=== PATIENT | male | born 2005 | race Caucasian/White ===

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

== ENCOUNTER 2023-12-24 16:31 | Observation (INO) | payer OTHER ==
[~2023-12-24] VITALS: Ht 188 cm; Wt 86.2 kg
[~2023-12-24 16:31] MED LIST changes: +Inderal40 MG PO
[2023-12-24 17:57] LABS: BASOPHILS ABSOLUTE AUTO 0.04 K/mm3 (0.00-0.23); BASOPHILS PERCENT AUTO 1 % (0-2); EOSINOPHILS ABSOLUTE AUTO 0.18 K/mm3 (0.00-0.68); EOSINOPHILS PERCENT AUTO 2 % (0-6); Hematocrit 38.2 % (37.0-53.0); IMMATURE GRAN ABSOLUTE AUTO 0.02 K/mm3 (0.00-0.10); IMMATURE GRAN PERCENT AUTO 0 % (0-1); LYMPHOCYTES ABSOLUTE AUTO 1.74 K/mm3 (0.84-5.20); LYMPHOCYTES PERCENT AUTO 20 % (21-46); MONOCYTES ABSOLUTE AUTO 0.66 K/mm3 (0.16-1.47); MONOCYTES PERCENT AUTO 8 % (4-13); Mean Corpuscular Volume 88 fL (80-100); Mean Platelet Volume 9.6 fL (9.1-12.4); NEUTROPHILS PERCENT AUTO 70 % (41-73); Platelet Count 271 K/mm3 (150-400); RDW Coefficient Variation 13.7 % (11.7-14.2); RDW Standard Deviation 44.3 fL (35.1-46.3); Red Blood Cell Count 4.34 M/mm3 (4.30-5.90); White Blood Cell Count 8.74 K/mm3 (4.00-11.30)
[2023-12-24 18:10] LABS: Ethanol (Alcohol), Blood, Med <3 mg/dL
[2023-12-24 18:11] LABS: Acetaminophen, Random <2.0 ug/mL (10.0-30.0); Alanine Aminotransfer (ALT/SGP 28 U/L (12-78); Albumin, Blood 4.2 g/dL (3.4-5.0); Albumin/Globulin Ratio 1.2 (0.8-1.8); Alk Phos 97 U/L (50-136); Anion Gap 11 mmol/L (3-11); Aspartate Aminotrans (AST/SGOT 38 U/L (12-37); Bilirubin, Total 0.7 mg/dL (0.1-1.0); Blood Urea Nitrogen 20 mg/dL (8-24); Bun/Creatinine Ratio 18.5 (12.0-20.0); CO2, Blood 21 mmol/L (21-32); Calcium, Blood 9.5 mg/dL (8.5-10.1); Chloride, Blood 110 mmol/L (98-108); Creatinine, Blood 1.08 mg/dL (0.60-1.20); Globulin, Blood 3.4 g/dL (2.2-4.0); Glomerular Filtration Rate 101 (60-); Glucose, Blood 106 mg/dL (70-99); Potassium, Blood 4.4 mmol/L (3.5-5.5); Sodium, Blood 138 mmol/L (136-145); Total Protein, Blood 7.6 g/dL (6.4-8.2)
[2023-12-24] MEDS ORDERED: OLANZapine 10 MG Tab PO ONE ×2 (18:20→20:45)
[2023-12-24 19:46] LABS: Source, Urine Clean Catch
[2023-12-24 20:00] LABS: Appearance, Urine Clear (Clear); Bilirubin, Urine Neg (Neg); Blood, Urine Neg (Neg); Color, Urine Yellow (P-Yellow); Glucose Qualitative, Urine Neg (Neg); Ketones, Urine 2+ (Neg); Leukocyte Esterase, Urine 1+ (Neg); Nitrite, Urine Neg (Neg); Protein, Urine 3+ (Neg); Specific Gravity, Urine 1.025 (1.003-1.022); Urobilinogen, Urine 1+ (Normal)
[2023-12-24 20:05] LABS: Mucus Light (0-Heavy)
[2023-12-24 20:06] LABS: Bacteria Few /hpf; Hyaline Casts 0-2 /lpf (0-2); Red Blood Cells, Urine 0-2 /hpf (0-2); Squamous Epithelial Cells Not Seen /hpf (Few)
[2023-12-24 20:12] LABS: U Amphetamine Screen DETECTED; U Barbituate Screen Not Detected; U Benzodiazapine Screen Not Detected; U Buprenorphine Screen Not Detected; U Cannabinoids Screen DETECTED; U Cocaine Screen Not Detected; U Methadone Screen Not Detected; U Methamphetamine Screen DETECTED; U Opiates Screen Not Detected; U Oxycodone Screen Not Detected; U Phencyclidine Screen Not Detected
[2023-12-24] MEDS ORDERED: OLAN10 PO (20:53)
[2023-12-25 09:13] VITALS: BP 114/77
== END 2023-12-25 13:23 | disposition home or self-care (01) ==
LOC: ER 16:31 → EOR 16:32
PROVIDERS: Student in an Organized Health Care Education/Training Program; ADMIT Emergency Medicine
DX: F15.94 Other stimulant use, unspecified with stimulant-induced mood disorder (principal); R45.851 Suicidal ideations; F90.9 Attention-deficit hyperactivity disorder, unspecified type; F31.9 Bipolar disorder, unspecified; F20.9 Schizophrenia, unspecified; Z91.199 Patient's noncompliance with other medical treatment and regimen due to unspecified reason
CPT/HCPCS: 80053; 81001; 85025; 87077; 87086; 87186; 93005; 93010; 99285-25; A9270; G0378; G0480

== ENCOUNTER 2024-02-05 16:57 | Emergency (ER) | payer OTHER ==
[~2024-02-05] VITALS: Ht 185.4 cm; Wt 86.2 kg
[2024-02-05 17:14] VITALS: BP 132/72
[2024-02-05 17:45] LABS: BASOPHILS ABSOLUTE AUTO 0.04 K/mm3 (0.00-0.23); BASOPHILS PERCENT AUTO 1 % (0-2); EOSINOPHILS ABSOLUTE AUTO 0.51 K/mm3 (0.00-0.68); EOSINOPHILS PERCENT AUTO 6 % (0-6); Hematocrit 42.2 % (37.0-53.0); Hemoglobin 14.3 g/dL (13.5-17.5); IMMATURE GRAN ABSOLUTE AUTO 0.02 K/mm3 (0.00-0.10); IMMATURE GRAN PERCENT AUTO 0 % (0-1); LYMPHOCYTES ABSOLUTE AUTO 2.39 K/mm3 (0.84-5.20); LYMPHOCYTES PERCENT AUTO 28 % (21-46); MONOCYTES ABSOLUTE AUTO 0.68 K/mm3 (0.16-1.47); MONOCYTES PERCENT AUTO 8 % (4-13); Mean Corpuscular HGB 30.2 pg (26.0-34.0); Mean Corpuscular HGB Conc 33.9 g/dL (31.5-36.5); Mean Corpuscular Volume 89 fL (80-100); Mean Platelet Volume 9.3 fL (9.1-12.4); NEUTROPHILS ABSOLUTE AUTO 4.79 K/mm3 (1.96-9.15); NEUTROPHILS PERCENT AUTO 57 % (41-73); Platelet Count 321 K/mm3 (150-400); RDW Coefficient Variation 14.1 % (11.7-14.2); RDW Standard Deviation 45.9 fL (35.1-46.3); Red Blood Cell Count 4.73 M/mm3 (4.30-5.90); White Blood Cell Count 8.43 K/mm3 (4.00-11.30)
[2024-02-05 18:01] LABS: Albumin, Blood 4.1 g/dL (3.4-5.0); Bilirubin, Total 0.5 mg/dL (0.1-1.0); Bun/Creatinine Ratio 19.2 (12.0-20.0); Creatinine, Blood 1.04 mg/dL (0.60-1.20); Total Protein, Blood 8.1 g/dL (6.4-8.2)
== END 2024-02-05 18:56 | disposition home or self-care (01) ==
LOC: ER 16:57
PROVIDERS: Student in an Organized Health Care Education/Training Program
DX: R60.0 Localized edema (principal); Z79.899 Other long term (current) drug therapy; Z91.038 Other insect allergy status
CPT/HCPCS: 70450; 80053; 85025; 99284-25

== ENCOUNTER 2024-10-18 15:54 | Emergency (ER) | payer OTHER ==
[~2024-10-18] VITALS: Ht 188 cm; Wt 86.2 kg
[~2024-10-18 15:54] MED LIST changes: +IBU600 M1 PO; +IBUP600 PO
[2024-10-18 16:22] VITALS: BP 138/87
[2024-10-18] MEDS ORDERED: Diphth,Pertuss(Acell),Tet Vac 0.5 ML VIAL IM ONE (16:25)
== END 2024-10-18 17:41 | disposition home or self-care (01) ==
LOC: ER 15:54
DX: S01.81XA Laceration without foreign body of other part of head, initial encounter (principal); S06.0XAA Concussion with loss of consciousness status unknown, initial encounter; W19.XXXA Unspecified fall, initial encounter; F17.200 Nicotine dependence, unspecified, uncomplicated; Z23 Encounter for immunization; Z91.038 Other insect allergy status; Z79.899 Other long term (current) drug therapy
CPT/HCPCS: 12011; 90471; 90715; 99283-25

== ENCOUNTER 2024-10-20 14:23 | Emergency (ER) | payer OTHER ==
[~2024-10-20] VITALS: Ht 188 cm; Wt 86.2 kg
[2024-10-20 14:26] VITALS: BP 108/61
== END 2024-10-20 14:34 | disposition home or self-care (01) ==
LOC: ER 14:23
DX: S01.81XD Laceration without foreign body of other part of head, subsequent encounter (principal); F17.200 Nicotine dependence, unspecified, uncomplicated; X58.XXXD Exposure to other specified factors, subsequent encounter
CPT/HCPCS: 99282

== ENCOUNTER 2024-10-20 16:30 | Emergency (ER) | payer OTHER ==
[~2024-10-20] VITALS: Ht 188 cm; Wt 81.7 kg
[2024-10-20 16:40] VITALS: BP 116/68
== END 2024-10-20 16:46 | disposition home or self-care (01) ==
LOC: ER 16:30
DX: S01.81XA Laceration without foreign body of other part of head, initial encounter (principal); W19.XXXA Unspecified fall, initial encounter; F17.200 Nicotine dependence, unspecified, uncomplicated; Z79.899 Other long term (current) drug therapy; Z91.038 Other insect allergy status
CPT/HCPCS: 99283

== ENCOUNTER 2025-03-25 19:14 | Emergency (ER) | payer OTHER ==
[~2025-03-25] VITALS: Ht 190.5 cm; Wt 79.4 kg
[2025-03-25 19:25] VITALS: BP 134/87
== END 2025-03-25 20:12 | disposition home or self-care (01) ==
LOC: ER 19:14
DX: F22 Delusional disorders (principal); F20.9 Schizophrenia, unspecified; F15.10 Other stimulant abuse, uncomplicated; Z91.030 Bee allergy status
CPT/HCPCS: 99283

== ENCOUNTER 2025-03-28 17:20 | Emergency (ER) | payer SELFPAY ==
[~2025-03-28] VITALS: Ht 190.5 cm; Wt 70.3 kg
[2025-03-28 18:09] VITALS: BP 147/92
== END 2025-03-28 18:52 | disposition home or self-care (01) ==
LOC: ER 17:20
DX: S90.822A Blister (nonthermal), left foot, initial encounter (principal); S90.821A Blister (nonthermal), right foot, initial encounter; Z91.038 Other insect allergy status; X58.XXXA Exposure to other specified factors, initial encounter
CPT/HCPCS: 99282

== ENCOUNTER 2025-03-29 07:24 | Emergency (ER) | payer SELFPAY ==
[~2025-03-29] VITALS: Ht 185.4 cm; Wt 63.5 kg
[2025-03-29 07:51] VITALS: BP 130/98
== END 2025-03-29 07:51 ==
LOC: ER 07:24
DX: L89.629 Pressure ulcer of left heel, unspecified stage (principal); L89.619 Pressure ulcer of right heel, unspecified stage; Z91.030 Bee allergy status
CPT/HCPCS: 99283